=== PATIENT | female | born 1940 | race Caucasian/White ===

== ENCOUNTER 2016-12-22 11:30 | Day surgery (SDC) | payer MEDICARE ==
[2016-12-22 12:42] LABS: APTT 33.1 SECONDS (22.8-39.4); CALCIUM 9.8 mg/dL (8.5-10.1); CARBON DIOXIDE 32.1 mmol/L (21.0-32.0); CREATININE - SERUM 1.1 mg/dL (0.6-1.3); INR 1.08 (0.85-1.17); POTASSIUM - SERUM 4.1 mmol/L (3.5-5.1); PROTIME 13.9 SECONDS (11.6-15.0)
[2016-12-22] MEDS ORDERED: METFORMIN HCL500 M1 PO (13:20)
[2016-12-22] MEDS ORDERED: NEURONTIN800 MG PO (13:20)
[2016-12-22] MEDS ORDERED: AMBIEN5 MG PO (13:21)
[2016-12-22] MEDS ORDERED: LISINOPRIL10 MG PO (13:21)
[2016-12-22] MEDS ORDERED: LOVENOX30 MG/0.3 SC (13:22)
[2016-12-22] MEDS ORDERED: ATIVAN1 MG PO (13:22)
[2016-12-22] MEDS ORDERED: PRAVACHOL40 MG PO (13:22)
[2016-12-22] MEDS ORDERED: ZANAFLEX4 MG PO (13:23)
[2016-12-22] MEDS ORDERED: WELLBUTRIN SR150 MG PO (13:24)
--- NOTE | 2016-12-22 13:24 | NUR ---
MED LIST PT UNSURE OF ALL THE MEDICATIONS SHE IS CURRENTLY TAKING. MED LIST WAS THE BEST WE COULD DO.
[2016-12-22 13:25] VITALS: BMI 26.6
[2016-12-22 13:56] LABS: HEMATOCRIT 42.2 % (36.0-48.0); HEMOGLOBIN 13.7 g/dL (12-16); MCH 28.8 pg (26.0-34.0); MCHC 32.5 g/dL (31.0-37.0); MCV 88.8 fL (80.0-100.0); MEAN PLATELET VOLUME 9.6 fL (7.4-10.4); RBC 4.75 10x6/uL (4.00-5.40); RDW 15.3 % (11.5-14.5); WBC 6.2 10x3/uL (4.8-10.8)
--- NOTE | 2016-12-22 15:21 | NUR ---
WANTED HOT BX FORCEP FOR SMALLER BIOPSY.
--- NOTE | 2016-12-22 17:22 | NUR ---
1630- DR. PRIETO AT BEDSIDE, DISCUSSING PROCEDURE FINDINGS 1640- DISCHARGE INSTRUCTIONS COMPLETED. PT VERBALIZES UNDERSTANDING. PAPERWORK SIGNED. 1645- PT DISCHARGED VIA WHEELCHAIR WITH .
--- NOTE | 2016-12-26 18:22 | OP ---
PATIENT NAME: MIRANDA CAMEJO MEDICAL RECORD: [id number] :40 LOCATION:[facility] ADMISSION DATE: SURGEON: MELINDA PRIETO MD DATE OF OPERATION: 12/22/2016 PROCEDURE: Colonoscopy with biopsy. REFERRING PHYSICIAN: Joann Reveles MD INDICATIONS: Ms. Camejo is a pleasant 76-year-old woman who has had symptoms of diarrhea, lower abdominal pain, and hematochezia. She presents for outpatient colonoscopy. Her last colonoscopy was 06/07/2007 with findings showing normal terminal ileum, small cecal angioectasias, mild sigmoid diverticulosis, and internal hemorrhoids with a slightly prolapsed rectum and external hemorrhoids. She presents for outpatient colonoscopy. PREMEDICATIONS: Total IV anesthesia, propofol 300 mg (history of mechanical heart valve, diabetes mellitus, hypertension, bronchitis). INSTRUMENT: PROTEIN LOUNGE video colonoscope. PROCEDURE AND FINDINGS: After receiving informed consent, Ms. Camejo was placed in left lateral decubitus position and sedated as per anesthesia. After achieving adequate level of sedation, digital rectal exam was performed that showed slightly prolapsed rectum, multiple external hemorrhoids, mildly decreased sphincter tone, and no palpable rectal masses. The colonoscope was introduced per rectally and advanced to the cecum without difficulty. The cecum, IC valve, and appendiceal orifice were identified and appeared normal. The colonoscope was withdrawn, careful inspection was made of the flaherty of the colon. Overall mucosa had normal vascular and fold pattern. There was minimal patchy erythema in the ascending colon and ascending biopsies were obtained to rule out microscopic colitis. Additionally, stool was collected during the procedure for study. There was a modest amount of retained thick liquid stool scattered throughout the colon. There were multiple diverticula (mild) in the sigmoid colon. Retroflexion in rectum showed moderate internal hemorrhoids. Withdrawal time was 8 minutes. Ms. Camejo tolerated the procedure well, no immediate complications. ASSESSMENT: 1. Minimal erythema of the ascending colon, status post biopsy to rule out microscopic colitis. 2. Mild sigmoid diverticulosis coli. 3. Moderate internal and external hemorrhoids with a slightly prolapsed rectum. RECOMMENDATIONS: 1. Follow up histopathology. 2. High fiber diet as tolerated. 3. Celiac serology. 4. Follow up stool studies. TRANSINT:[id number] Voice Confirmation ID: [id number] DOCUMENT ID: [id number] OPERATIVE REPORT [id number] CAMEJO,MELINDA GILMAN MD at 1822 CC: JOANN REVELES MD [id number] DICTATION DATE: 12/22/16 1543 TILE CONDUIT LAYER: 12/22/16 1638 [facility] 12/22/16 [facility] [address] [place] [address]
== END 2016-12-22 16:45 | disposition home or self-care (01) ==
LOC: D.OPS 11:30
PROVIDERS: Anesthesiology
DX: K92.1 Melena (principal); I25.10 Atherosclerotic heart disease of native coronary artery without angina pectoris; I10 Essential (primary) hypertension; E11.9 Type 2 diabetes mellitus without complications; K21.9 Gastro-esophageal reflux disease without esophagitis; Z95.1 Presence of aortocoronary bypass graft; R19.7 Diarrhea, unspecified; K57.30 Diverticulosis of large intestine without perforation or abscess without bleeding; Z01.812 Encounter for preprocedural laboratory examination

== ENCOUNTER → 2019-08-22 13:25 | Outpatient (CLI) | payer MEDICARE ==
[~2019-08-22 13:25] MED LIST: AMBIEN5 MG PO; ATIVAN1 MG PO; LISINOPRIL10 MG PO; LOVENOX30 MG/0.3 SC; METFORMIN HCL500 M1 PO; NEURONTIN800 MG PO; PRAVACHOL40 MG PO; WELLBUTRIN SR150 MG PO; ZANAFLEX4 MG PO
== END | disposition home or self-care (01) ==
LOC: D.LABREF 13:25
PROVIDERS: ATTEND Family Medicine
DX: I69.351 Hemiplegia and hemiparesis following cerebral infarction affecting right dominant side (principal)